=== PATIENT | male | born 1985 | race Caucasian/White ===

== ENCOUNTER 2016-07-10 17:07 | Emergency (ER) | payer SELFPAY ==
[2016-07-10 17:14] VITALS: BP 110/66
[2016-07-10] MEDS ORDERED: OXYCODONE-ACETAMINOPHEN 5-325 MG TABLET PO ONE (17:18)
--- NOTE | 2016-07-10 17:20 | ER Document Report ---
ED Medical Screen (RME) - General Stated Complaint: FALL/RIGHT HIP PAIN Mode of Arrival: Wheelchair Information source: Patient Notes: Patient presents to the emergency department with complaints of right hip pain. Patient reports he was on a 6 foot ladder when the ladder slipped and came out from under him. He fell landing on the lateral. Denies change in LOC. Denies n/v. I have greeted and performed a rapid initial assessment of this patient. A comprehensive ED assessment and evaluation of the patient, analysis of test results and completion of the medical decision making process will be conducted by additional ED providers. TRAVEL OUTSIDE OF THE [place] IN LAST 30 DAYS: No - Related Data Allergies/Adverse Reactions: No Known Allergies Allergy (Verified 08/02/14 13:55) Past Medical History Skin Medical History: Reports Hx MRSA - Immunizations Hx Diphtheria, Pertussis, Tetanus Vaccination: - unkown Physical Exam - Vital signs Vitals: Temp Pulse Resp BP Pulse Ox 98.0 F 99 14 110/66 100 07/10/16 17:13 07/10/16 17:13 07/10/16 17:13 07/10/16 17:13 07/10/16 17:13 Course - Vital Signs Vital signs: Temp Pulse Resp BP Pulse Ox 98.0 F 99 14 110/66 100 07/10/16 17:13 07/10/16 17:13 07/10/16 17:13 07/10/16 17:13 07/10/16 17:13
--- NOTE | 2016-07-10 18:03 | ER Document Report ---
HPI - HPI Patient complains to provider of: fall Pain Level: 5 Context: Patient is a 31-year-old male presents emergency department after a fall off a six-foot ladder which was not at the top of. Patient states that the ladder slipped out from underneath him and he landed on his right hip but denies any other injury. Denies head injury Patient states that he has right wrist pain but no decreased motion or strength. Able to ambulate with pain but appearing weak. Denies any other past medical history surgery - REPRODUCTIVE Reproductive: DENIES: : - DERM Skin Color: Normal Past Medical History - General Information source: Patient - Social History Smoking Status: Current Every Day Smoker Chew tobacco use (# tins/day): No Frequency of alcohol use: None Drug Abuse: None Family History: Reviewed & Not Pertinent Patient has suicidal ideation: No Patient has homicidal ideation: No Renal/ Medical History: Denies: Hx Peritoneal Dialysis Skin Medical History: Reports Hx MRSA - Immunizations Hx Diphtheria, Pertussis, Tetanus Vaccination: - unkown Vertical Provider Document - CONSTITUTIONAL Agree With Documented VS: Yes Exam Limitations: No Limitations General Appearance: WD/WN, No Apparent Distress - INFECTION CONTROL TRAVEL OUTSIDE OF THE [place] IN LAST 30 DAYS: No - HEENT HEENT: Atraumatic, Normal ENT Exam, Normocephalic, PERRLA - NECK Neck: Normal Inspection, Other - Full range of motion, no evidence of cervical spinous process tenderness or paraspinous muscle tenderness - RESPIRATORY Respiratory: Breath Sounds Normal, No Respiratory Distress, Chest Non-Tender. negative: Rales, Rhonchi, Wheezing O2 Sat by Pulse Oximetry: 100 - CARDIOVASCULAR Cardiovascular: Regular Rate, Regular Rhythm, No Murmur Pulses: Normal: Radial, Femoral, Dorsalis pedis - BACK Back: Normal Inspection Notes: No evidence of thoracic or lumbar spinous process tenderness, paraspinous muscle tenderness - MUSCULOSKELETAL/EXTREMETIES Musculoskeletal/Extremeties: MAEW, FROM, Tender - Tenderness to palpation over the right hip with evidence of mild bruising and mobile osteophyte, Eccymosis - NEURO Level of Consciousness: Awake, Alert, Appropriate Motor/Sensory: No Motor Deficit, No Sensory Deficit - DERM Integumentary: Warm, Dry, No Rash Course - Re-evaluation Re-evalutation: 07/10/16 18:01 Patient is a 31-year-old male to emergency department for follow-up bilateral. Patient is able to ambulate and bear weight but with pain. X-ray did not reveal any fracture. We'll discharge home with instruction to follow up with primary care provider as needed - Vital Signs Vital signs: Temp Pulse Resp BP Pulse Ox 98.0 F 99 14 110/66 100 07/10/16 17:13 07/10/16 17:13 07/10/16 17:13 07/10/16 17:13 07/10/16 17:13 - Diagnostic Test Radiology reviewed: Image reviewed, Reports reviewed Discharge - Discharge Clinical Impression: Hip pain Qualifiers: Laterality: right Qualified Code(s): M25.551 - Pain in right hip Condition: Good Disposition: HOME, SELF-CARE Additional Instructions: There is no evidence of broken bones and her workup today Be sure to ice the area that hurts to help decrease swelling help with pain Take medication as prescribed Follow-up with your primary care provider as needed Prescriptions: Oxycodone HCl/Acetaminophen [Percocet 5-325 mg Tablet] 1 - 2 tab PO Q4HP PRN # 15 tablet PRN Reason: Forms: Return to Work
== END 2016-07-10 18:05 | disposition home or self-care (01) ==
LOC: ER 17:07
DX: M25.551 Pain in right hip (principal); F17.200 Nicotine dependence, unspecified, uncomplicated; W11.XXXA Fall on and from ladder, initial encounter; Z86.14 Personal history of Methicillin resistant Staphylococcus aureus infection
CPT/HCPCS: 99283

== ENCOUNTER 2016-07-30 21:02 | Emergency (ER) | payer SELFPAY ==
[2016-07-30 21:56] VITALS: BP 118/77
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
[2016-07-31] MEDS ORDERED: IBUPROFEN 800 MG TABLET PO ONE (03:02)
== END 2016-07-31 03:30 | disposition left against medical advice (07) ==
LOC: ER 21:02
DX: R52 Pain, unspecified (principal); Y08.02XA Assault by strike by baseball bat, initial encounter; F17.200 Nicotine dependence, unspecified, uncomplicated; Z86.14 Personal history of Methicillin resistant Staphylococcus aureus infection; Z53.29 Procedure and treatment not carried out because of patient's decision for other reasons
CPT/HCPCS: 99281

== ENCOUNTER 2016-09-20 11:28 | Emergency (ER) | payer SELFPAY ==
[2016-09-20] MEDS ORDERED: HYDROCODONE/ACETAMINOPHEN 5-325 MG TABLET PO ONE (12:44)
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
[2016-09-20 14:44] VITALS: BP 104/66
== END 2016-09-20 14:44 | disposition home or self-care (01) ==
LOC: ER 11:28
DX: S93.601A Unspecified sprain of right foot, initial encounter (principal); S83.91XA Sprain of unspecified site of right knee, initial encounter; S80.212A Abrasion, left knee, initial encounter; S00.01XA Abrasion of scalp, initial encounter; S50.312A Abrasion of left elbow, initial encounter; S50.311A Abrasion of right elbow, initial encounter; R07.89 Other chest pain; Y04.8XXA Assault by other bodily force, initial encounter; M25.561 Pain in right knee; M25.461 Effusion, right knee; M79.671 Pain in right foot; F17.200 Nicotine dependence, unspecified, uncomplicated
CPT/HCPCS: 99284; 71020; 73630; 73564; L1830

== ENCOUNTER 2016-12-04 03:43 | Emergency (ER) | payer SELFPAY ==
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
[2016-12-04] MEDS ORDERED: HYDROCODONE/ACETAMINOPHEN 5-325 MG TABLET PO ONE (06:05)
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
[2016-12-04 06:39] VITALS: BP 138/75
== END 2016-12-04 06:39 | disposition home or self-care (01) ==
LOC: ER 03:43
DX: S00.11XA Contusion of right eyelid and periocular area, initial encounter (principal); Y04.2XXA Assault by strike against or bumped into by another person, initial encounter; Y93.19 Activity, other involving water and watercraft; Y92.89 Other specified places as the place of occurrence of the external cause; Z86.14 Personal history of Methicillin resistant Staphylococcus aureus infection
CPT/HCPCS: 70486; 99284

== ENCOUNTER 2017-11-02 09:30 | Emergency (ER) | payer SELFPAY ==
[2017-11-02 09:37] VITALS: BP 105/80
[2017-11-02] MEDS ORDERED: LIDOCAINE 1%/EPINEPHRINE INJ 20 ML VIAL INJ ONE (09:44)
--- NOTE | 2017-11-02 09:53 | ER Document Report ---
ED Head/Face/Scalp Injury - General Chief Complaint: Head Injury with LOC Stated Complaint: HEAD INJURY Time Seen by Provider: 11/02/17 09:39 Notes: The patient is a 32-year-old male who presents after a pipe fell on the top of his head earlier today. He has a 3 cm laceration. Patient says he felt dazed, but he denies LOC, neck pain, blurry vision, focal weakness, numbness, tingling or heavy bleeding. His tetanus is up-to-date. TRAVEL OUTSIDE OF THE [place] IN LAST 30 DAYS: No - Related Data Allergies/Adverse Reactions: No Known Allergies Allergy (Verified 11/02/17 09:31) Past Medical History - General Information source: Patient - Social History Smoking Status: Current Every Day Smoker Chew tobacco use (# tins/day): No Frequency of alcohol use: None Drug Abuse: None Family History: Reviewed & Not Pertinent Patient has suicidal ideation: No Patient has homicidal ideation: No Renal/ Medical History: Denies: Hx Peritoneal Dialysis Skin Medical History: Reports Hx MRSA - Immunizations Immunizations up to date: Yes Hx Diphtheria, Pertussis, Tetanus Vaccination: Yes - unkown Review of Systems - Review of Systems Notes: REVIEW OF SYSTEMS: CONSTITUTIONAL: -fevers, -chills EENT: -eye pain, -difficulty swallowing, -nasal congestion CARDIOVASCULAR: -chest pain, -syncope. RESPIRATORY: -cough, -SOB GASTROINTESTINAL: -abdominal pain, -nausea, -vomiting, -diarrhea GENITOURINARY: -dysuria, -hematuria MUSCULOSKELETAL: -back pain, -neck pain SKIN: +scalp laceration HEMATOLOGIC: -easy bruising or bleeding. LYMPHATIC: -swollen, enlarged glands. NEUROLOGICAL: -altered mental status or loss of consciousness, +headache, - neurologic symptoms PSYCHIATRIC: -anxiety, -depression. ALL OTHER SYSTEMS REVIEWED AND NEGATIVE. Physical Exam - Vital signs Vitals: Temp Pulse Resp BP Pulse Ox 98.6 F 102 H 16 105/80 98 11/02/17 09:35 11/02/17 09:35 11/02/17 09:35 11/02/17 09:35 11/02/17 09:35 - Notes Notes: PHYSICAL EXAMINATION: GENERAL: Well-appearing, well-nourished and in no acute distress. HEAD: 3 cm linear laceration over superior scalp EYES: Pupils equal round and reactive to light, extraocular movements intact, sclera anicteric, conjunctiva are normal. ENT: nares patent, oropharynx clear without exudates. Moist mucous membranes. NECK: Normal range of motion, supple without lymphadenopathy LUNGS: Breath sounds clear to auscultation bilaterally and equal. No wheezes rales or rhonchi. HEART: Regular rate and rhythm without murmurs ABDOMEN: Soft, nontender, normoactive bowel sounds. No guarding, no rebound. No masses appreciated. EXTREMITIES: Normal range of motion, no pitting or edema. No cyanosis. NEUROLOGICAL: Cranial nerves grossly intact. Normal speech, normal gait. Normal sensory and motor exams. PSYCH: Normal mood, normal affect. Course - Re-evaluation Re-evalutation: Patient with a scalp laceration after a metal pipe fell on him earlier today. He says he felt dazed, but denies LOC. Offered patient CT scan to assess for skull fracture or intracranial bleed. Patient declines a CAT scan at this time due to the cost. He has capacity to make his own decisions and understands the risks of missing a fracture and intracranial bleed. He is neurovascularly intact. Tetanus is up-to-date. Scalp laceration cleaned, stapled and given very strict return precautions. - Vital Signs Vital signs: Temp Pulse Resp BP Pulse Ox 98.6 F 102 H 16 105/80 98 11/02/17 09:35 11/02/17 09:35 11/02/17 09:35 11/02/17 09:35 11/02/17 09:35 Procedures - Laceration/Wound Repair Upper Head Time completed: 10:03 Wound length (cm): 3 Wound's Depth, Shape: Linear Laceration pre-procedure: Sterile PPE donned Anesthetic type: 1% Lidocaine w/epi Volume Anesthetic (mLs): 3 Wound explored: Clean Irrigated w/ Saline (mLs): 1,000 Wound Repaired With: [place] Number of Sutures: 3 Layer Closure?: No Post-procedure NV exam normal: Yes Complications: No Discharge - Discharge Clinical Impression: Laceration of scalp Qualifiers: Encounter type: initial encounter Qualified Code(s): S01.01XA - Laceration without foreign body of scalp, initial encounter Head injury Qualifiers: Encounter type: initial encounter Qualified Code(s): S09.90XA - Unspecified injury of head, initial encounter Condition: Stable Disposition: HOME, SELF-CARE Additional Instructions: Return to the ER if you have any worsening symptoms or any other concerns. LACERATION CARE: Your laceration has been stapled to keep the skin edges aligned during healing. The time of jacinda removal depends on the nature and location of your cut. Please follow the care instructions the doctor has outlined for you and return for further care, according to the schedule you've been given. Keep the wound and dressing clean. Unless you were told otherwise, you may shower daily, blotting the wound dry with a clean, unused towel. At other times, If the dressing gets wet or blood soaked, remove it and blot the wound dry, then reapply a new dressing. Unless you were instructed otherwise, dressings should be changed at least daily. If any signs of infection occur (swelling, redness, drainage, increasing tenderness, red streaks, tender lumps in the armpit or groin above the laceration, or fever), see the doctor immediately. SOAP CLEANSING: Gently wash the wound daily using a mild soap (like Ivory, Phisoderm, Neutrogena). Use warm water, rubbing gently until all debris, ooze, and crusting have been washed from the wound. Allow to dry briefly (about 10 minutes) after cleaning. Repeat this cleansing at least three times a day for the first two days and then once or twice a day. FOLLOW-UP CARE: Please return in 2 days for an infection check and dressing change. Your sutures should be removed in 7 days. To facilitate a timely removal of your sutures, you may return to the Emergency Department at [facility]. You do not need to call for an appointment, but the best time to come in for suture removal is early in the morning. If you have been referred to another physician for follow-up care, call that physicians office for an appointment as you were instructed. If you experience a significant change in your laceration, or if you are concerned there may be an infection (swelling, redness, drainage, increasing tenderness, red streaks, tender lumps in the armpit or groin above the laceration, or fever) , return to the Emergency Department immediately re-evaluation.
== END 2017-11-02 10:09 | disposition home or self-care (01) ==
LOC: ER 09:30
DX: S01.01XA Laceration without foreign body of scalp, initial encounter (principal); W20.8XXA Other cause of strike by thrown, projected or falling object, initial encounter; F17.200 Nicotine dependence, unspecified, uncomplicated; R51 Headache
CPT/HCPCS: 99283; 12002; J3490

== ENCOUNTER 2017-11-04 16:24 | Emergency (ER) | payer SELFPAY ==
[2017-11-04] MEDS ORDERED: HYDROCODONE/ACETAMINOPHEN 5-325 MG TABLET PO ONE (17:17)
--- NOTE | 2017-11-04 17:21 | ER Document Report ---
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 Patient states today he was at work and a piece struck his right lower back area. Patient complains of a rash to bilateral arms and states that he has been exposed both to diesel fuel as well as cement that has sprayed up on his arms in this location. Patient states his tetanus immunizations currently up-to-date. Associated Symptoms: Other - Right lower back, right knee, right ankle pain. denies: Nonproductive cough, Headache, Vomiting Exacerbated by: Movement, Walking Relieved by: Denies Similar symptoms previously: No Recently seen / treated by doctor: Yes - ROS ROS below otherwise negative: Yes Systems Reviewed and Negative: Yes All other systems reviewed and negative - CONSTITUTIONAL Constitutional: DENIES: Fever - NEURO Neurology: DENIES: Headache - GASTROINTESTINAL Gastrointestinal: DENIES: Nausea - REPRODUCTIVE Reproductive: DENIES: : - MUSCULOSKELETAL Musculoskeletal: REPORTS: Extremity pain, Back Pain. 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 IN LAST 30 DAYS: No - HEENT HEENT: Atraumatic, Normocephalic - NECK Neck: Normal Inspection, Supple - RESPIRATORY Respiratory: Breath Sounds Normal, No Respiratory Distress - CARDIOVASCULAR Cardiovascular: Regular Rate, Regular Rhythm - GI/ABDOMEN Gastrointestinal: Abdomen Soft, Abdomen Non-Tender - BACK Back: Abnormal Inspection - Right lower thoracolumbar tenderness, no abrasions or ecchymosis noted, CVA Tenderness-Right - MUSCULOSKELETAL/EXTREMETIES Musculoskeletal/Extremeties: JOSE LANGLEY, Tender - Right medial ankle tenderness with overlying abrasion, no edema, no deformity Notes: Right medial knee tenderness, no laxity with varus or valgus maneuvers, patellar tendon intact. No edema. - NEURO Level of Consciousness: Awake, Alert, Appropriate Motor/Sensory: No Motor Deficit - DERM Integumentary: Warm, Dry, Rash - Patient with mild erythematous rash to the volar aspect of bilateral forearms Course - Re-evaluation Re-evalutation: 11/04/17 19:50 Patient without any objective injuries on x-ray. Patient advised of radiology findings and plan of care. Patient after reviewing his discharge paperwork began to question the nurse about his prescriptions. Patient states that he has been here for several hours and has received nothing for pain and that he was half asleep whenever the provider came in and talked with him. All encounters between provider and patient occurred with patient awake alert and answering questions appropriately. Patient insistent that naproxen will do nothing for his pain symptoms, patient also insistent that the muscle relaxer will not help his pain symptoms. Patient advised that he could instead take Motrin or Tylenol [id number] but that his injuries did not warrant any narcotics at this time. Patient increasingly becoming argumentative. Security on standby during patient's discharge. - Vital Signs Vital signs: Temp Pulse Resp BP Pulse Ox 98.6 F 64 16 130/78 H 98 11/04/17 16:33 11/04/17 16:33 11/04/17 16:33 11/04/17 16:33 11/04/17 16:33 - Laboratory Laboratory results interpreted by me: 11/04/17 19:23 Labs- Entire Visit 11/04/17 18:30 Urine Color YELLOW Urine Appearance SLIGHTLY-CLOUDY Urine pH 7.0 Ur Specific [place] 1.010 Urine Protein NEGATIVE Urine Glucose (UA) NEGATIVE Urine Ketones NEGATIVE Urine Blood NEGATIVE Urine Nitrite NEGATIVE Urine Bilirubin NEGATIVE Urine Urobilinogen NEGATIVE Ur Leukocyte Esterase NEGATIVE Urine WBC (Auto) 0 Urine RBC (Auto) 1 Urine Mucus (Auto) RARE Urine Ascorbic Acid NEGATIVE - Diagnostic Test Radiology reviewed: Image reviewed, Reports reviewed Procedures - Immobilization Right Knee Pre-Proc Neuro Vasc Exam: Normal Immobilizer type: Tarun wrap Performed by: Provider Post-Proc Neuro Vasc Exam: Normal Alignment checked and good: Yes Right Ankle Pre-Proc Neuro Vasc Exam: Normal Immobilizer type: Ankle stirrup Performed by: Provider Post-Proc Neuro Vasc Exam: Normal Alignment checked and good: Yes Discharge - Discharge Clinical Impression: Dermatitis Low back strain Qualifiers: Encounter type: initial encounter Qualified Code(s): S39.012A - Strain of muscle, fascia and tendon of lower back, initial encounter Knee sprain Qualifiers: Encounter type: initial encounter Involved ligament of knee: unspecified ligament Laterality: right Qualified Code(s): S83.91XA - Sprain of unspecified site of right knee, initial encounter Right ankle sprain Qualifiers: Encounter type: initial encounter Involved ligament of ankle: unspecified ligament Qualified Code(s): S93.401A - Sprain of unspecified ligament of right ankle, initial encounter Condition: Stable Disposition: HOME, SELF-CARE Instructions: Use of Crutches ([facility]), Ice & Elevation ([facility]), Splint Precautions ([facility]), Sprained Ankle ([facility]), Sprained Knee ([facility]) Additional Instructions: Return immediately for any new or worsening symptoms Followup with your primary care provider, call tomorrow to make a followup appointment Wear protective clothing and gloves when you are handling and dealing with chemicals at work to prevent irritation to your arms Follow-up with orthopedic doctor for any continued pain or problems Weightbearing as tolerated Wear splint for the next 5 days and then remove. If still having pain replace splint and follow-up with orthopedics Prescriptions: Cyclobenzaprine HCl [Flexeril 10 Mg Tablet] 10 mg PO TID #15 tablet Naproxen [Naprosyn 250 Nmg Tablet] 1 tab PO BID #14 tablet Forms: Return to Work Referrals: [facility] [Provider Group] - Follow up as needed
--- NOTE | 2017-11-04 18:25 | RADIOLOGY REPORT (SQ) ---
EXAM DESCRIPTION: KNEE RIGHT 4 VIEWS COMPLETED DATE/TIME: 11/04/2017 5:59 pm REASON FOR STUDY: struck by cement at work COMPARISON: None. NUMBER OF VIEWS: Four views. TECHNIQUE: AP, lateral, and both oblique radiographic images acquired of the right knee. LIMITATIONS: None. FINDINGS: MINERALIZATION: Normal. BONES: No acute fracture or dislocation. No worrisome bone lesions. JOINT: Joint effusion. SOFT TISSUES: No soft tissue swelling. No radio-opaque foreign body. OTHER: No other significant finding. IMPRESSION: Joint effusion. No acute osseous abnormality. TECHNICAL DOCUMENTATION: JOB ID: [id number] [employer]- All Rights Reserved Reading location - IP/workstation name: [email or web address]
--- NOTE | 2017-11-04 18:26 | RADIOLOGY REPORT (SQ) ---
EXAM DESCRIPTION: ANKLE RIGHT COMPLETE COMPLETED DATE/TIME: 11/04/2017 6:03 pm REASON FOR STUDY: struck by cement at work COMPARISON: None. NUMBER OF VIEWS: Three views. TECHNIQUE: AP, lateral, and oblique radiographic images acquired of the right ankle. LIMITATIONS: None. FINDINGS: MINERALIZATION: Normal. BONES: No acute fracture or dislocation. No worrisome bone lesions. JOINTS: No effusions. SOFT TISSUES: No soft tissue swelling. No foreign body. OTHER: No other significant finding. IMPRESSION: NEGATIVE STUDY OF THE RIGHT ANKLE. NO RADIOGRAPHIC EVIDENCE OF ACUTE INJURY. TECHNICAL DOCUMENTATION: JOB ID: [id number] [employer]- All Rights Reserved Reading location - IP/workstation name: [email or web address]
--- NOTE | 2017-11-04 18:28 | RADIOLOGY REPORT (SQ) ---
EXAM DESCRIPTION: RIBS RIGHT W/PA CHEST COMPLETED DATE/TIME: 11/04/2017 6:03 pm REASON FOR STUDY: struck by cement at work COMPARISON: None. TECHNIQUE: Frontal view of the chest and additional views of the right ribs acquired. NUMBER OF VIEWS: Four views LIMITATIONS: None. FINDINGS: FRONTAL CXR: No pneumothorax. No pleural effusion. No atelectasis or infiltrates. RIBS: No displaced rib fractures. No lytic or blastic bony lesions. OTHER: No other significant finding. IMPRESSION: NO PNEUMOTHORAX. NO DISPLACED RIB FRACTURES. COMMENT: SITE OF TRAUMA/COMPLAINT MARKED/STAMP COMPLETED: No TECHNICAL DOCUMENTATION: JOB ID: [id number] [email or web address]- All Rights Reserved Reading location - IP/workstation name: [email or web address]
[2017-11-04 19:13] LABS: APPEARANCE,URINE SLIGHTLY-CLOUDY; BILIRUBIN,URINE NEGATIVE (NEGATIVE); COLOR,URINE YELLOW; GLUCOSE, URINE NEGATIVE (NEGATIVE); KETONES,URINE NEGATIVE (NEGATIVE); LEUKOCYTE ESTERASE,URINE NEGATIVE (NEGATIVE); NITRITE,URINE NEGATIVE (NEGATIVE); PROTEIN,URINE NEGATIVE (NEGATIVE); UROBILINOGEN,URINE NEGATIVE mg/dL (<2.0)
[2017-11-04] MEDS ORDERED: IBUPROFEN 800 MG TABLET PO ONE (19:34)
[2017-11-04 20:04] VITALS: BP 131/72
== END 2017-11-04 20:04 | disposition home or self-care (01) ==
LOC: ER 16:24
DX: S39.012A Strain of muscle, fascia and tendon of lower back, initial encounter (principal); S83.91XA Sprain of unspecified site of right knee, initial encounter; S93.401A Sprain of unspecified ligament of right ankle, initial encounter; W22.8XXA Striking against or struck by other objects, initial encounter; Y93.89 Activity, other specified; Y99.0 Civilian activity done for income or pay; L30.9 Dermatitis, unspecified
CPT/HCPCS: 99284; 81001; 73610; 73564; 71101; L1902

== ENCOUNTER 2020-02-25 08:41 | Emergency (ER) | payer SELFPAY ==
[2020-02-25 09:34] VITALS: BP 109/76
--- NOTE | 2020-02-25 09:50 | ER Document Report ---
ED Skin Rash/Insect Bite/Abscs - General Chief Complaint: Abscess Stated Complaint: POSSIBLE SPIDER BITE/GROIN AREA Time Seen by Provider: 02/25/20 09:48 Primary Care Provider: Reza [facility] [Outside] - Follow up in 1 week (for wound recheck) TRAVEL OUTSIDE OF THE [place] IN LAST 30 DAYS: No - HPI Notes: 35-year-old male to the emergency department with complaints of a groin abscess that began earlier in the week. He states about 2 to 3 days ago it started to drain. He states that he is here for antibiotics because it continues to drain purulent drainage. He states he thought initially it was a spider bite but also thought it could be a ingrown hair. He states he has had abscesses in the past his knee and his lip. He has never had a culture for these abscesses. He denies any fevers or chills. He denies any streaking redness down the leg, onto the abdomen. Denies testicular pain or testicular edema. He is up-to-date on his tetanus. - Related Data Allergies/Adverse Reactions: No Known Allergies Allergy (Verified 02/25/20 09:06) Past Medical History - General Information source: Patient - Social History Smoking Status: Current Every Day Smoker Chew tobacco use (# tins/day): No Frequency of alcohol use: None Family History: Reviewed & Not Pertinent Patient has homicidal ideation: No Renal/ Medical History: Denies: Hx Peritoneal Dialysis Skin Medical History: Reports Hx MRSA - Immunizations Immunizations up to date: Yes Hx Diphtheria, Pertussis, Tetanus Vaccination: Yes - unkown Review of Systems - Review of Systems Constitutional: denies: Chills, Fever EENT: No symptoms reported Cardiovascular: denies: Chest pain, Palpitations, Syncope, Dizziness, Lightheaded Respiratory: denies: Cough, Short of breath Gastrointestinal: denies: Abdominal pain, Diarrhea, Nausea, Vomiting Genitourinary: Other - Abscess in the left groin Male Genitourinary: denies: Testicular pain Musculoskeletal: No symptoms reported Skin: See HPI Hematologic/Lymphatic: No symptoms reported Neurological/Psychological: No symptoms reported -: Yes All other systems reviewed and negative Physical Exam - Vital signs Vitals: Temp Pulse Resp BP Pulse Ox 97.8 F 65 20 109/76 99 02/25/20 08:45 02/25/20 08:45 02/25/20 08:45 02/25/20 08:45 02/25/20 08:45 Interpretation: Normal - General General appearance: Appears well, Alert In distress: None - Respiratory Respiratory status: No respiratory distress Chest status: Nontender Breath sounds: Normal Chest palpation: Normal - Cardiovascular Rhythm: Regular Heart sounds: Normal auscultation Murmur: No - Abdominal Inspection: Normal Distension: No distension Bowel sounds: Normal Tenderness: Nontender Organomegaly: No organomegaly - Skin Notes: There is a draining abscess to the left side of the shaft of the penis. Likely from an ingrown hair. There is no streaking erythema or edema to the penis there is no streaking erythema or edema to the testicles. There is no tenderness to palpation over the testicles or scrotum. There is no evidence of involvement of the perineum. There is no streaking erythema onto the abdomen. Exam chaperoned by HOA Jacobs. Course - Re-evaluation Re-evalutation: 02/25/20 Impression: Penile shaft abscess. It is draining on its own and does not need further incision and drainage. Will start on antibiotics. Will start on doxycycline and give Naprosyn for pain. Encouraged warm compresses. He is to return if any worsening symptoms such as increased pain, Increased erythema, urinary retention, or fever or any other concerning symptoms. Patient agrees with plan. - Vital Signs Vital signs: Temp Pulse Resp BP Pulse Ox 97.8 F 65 20 109/76 99 02/25/20 09:06 02/25/20 08:45 02/25/20 08:45 02/25/20 08:45 02/25/20 08:45 Discharge - Discharge Clinical Impression: Abscess of shaft of penis Condition: Stable Disposition: HOME, SELF-CARE Instructions: Abscess ([facility]) Additional Instructions: Complete all antibiotics without fail. Return if you have worsening symptoms such as increasing pain, increasing swelling, increasing redness, fevers. Keep wound clean and dry. Continue to apply warm compresses. Prescriptions: Naproxen [Naprosyn 375 Mg Tablet] 375 mg PO BID #20 tablet Doxycycline Hyclate [Vibramycin 100 mg Tablet] 100 mg PO BID #20 tablet Referrals: [facility] [Outside] - Follow up in 1 week (for wound recheck)
== END 2020-02-25 10:33 | disposition home or self-care (01) ==
LOC: ER 08:41
DX: N48.21 Abscess of corpus cavernosum and penis (principal); F17.200 Nicotine dependence, unspecified, uncomplicated; Z86.14 Personal history of Methicillin resistant Staphylococcus aureus infection
CPT/HCPCS: 87070; 87077; 87186; 87205; 99283